=== PATIENT | female | born 1985 | race American Indian/Alaskan Native ===

== ENCOUNTER 2017-05-10 11:30 | Emergency (ER) | payer SELFPAY ==
[2017-05-10 11:44] VITALS: BP 127/87
[2017-05-10] MEDS ORDERED: PROVENTIL IH ONE (12:20)
[2017-05-10] MEDS ORDERED: DELTASONE PO ONE (12:20)
--- NOTE | 2017-05-10 12:21 | Emergency Department Report ---
Upper Respiratory HPI - HPI Chief Complaint: Upper Respiratory Infection Stated Complaint: COUGH/FEVER/WHEEZING Time Seen by Provider: 05/10/17 12:19 Duration: 3 Days URI Symptoms: Rhinorrhea: Yes, Sore Throat: Yes, Ear Pain: No, Cough: Yes, Shortness of Breath: Yes, Sick Contacts: Yes (child dx wtih bronchitis), Unable to Take Fluids: No, Urine Output Abnormal: No, Listless Behavior: No - Home Meds and Allergies Home Medications: Previous Rx's Medication Instructions Recorded Last Taken Type ALBUTEROL Inhaler [ProAir HFA 2 puff IH QID PRN #1 inhalation 05/10/17 Unknown Rx Inhaler] Azithromycin [Zithromax Z-MARLI] 250 mg PO DAILY #6 tablet 05/10/17 Unknown Rx Benzonatate [Tessalon Perles] 100 mg PO Q8HR PRN #30 capsule 05/10/17 Unknown Rx predniSONE [Deltasone] 40 mg PO QDAY #10 tablet 05/10/17 Unknown Rx Allergies/Adverse Reactions: Allergies Allergy/AdvReac Type Severity Reaction Status Date / Time No Known Allergies Allergy Unverified 05/10/17 11:39 ED Review of Systems ROS: Stated complaint: COUGH/FEVER/WHEEZING Other details as noted in HPI Constitutional: chills, fever Eyes: denies: eye pain, eye discharge, vision change ENT: denies: ear pain, throat pain Respiratory: cough, shortness of breath, wheezing Cardiovascular: denies: chest pain, palpitations Endocrine: no symptoms reported Gastrointestinal: denies: abdominal pain, nausea, diarrhea Genitourinary: denies: urgency, dysuria, discharge Musculoskeletal: denies: back pain, joint swelling, arthralgia Skin: denies: rash, lesions Neurological: denies: headache, weakness, paresthesias Psychiatric: denies: anxiety, depression Hematological/Lymphatic: denies: easy bleeding, easy bruising ED Past Medical Hx - Past Medical History Previous Medical History?: No - Surgical History Past Surgical History?: Yes Additional Surgical History: LEEP procedure - Social History Smoking Status: Current Every Day Smoker (15 pack yr smoker) Substance Use Type: None - Medications Home Medications: Home Medications Medication Instructions Recorded Confirmed Last Taken Type ALBUTEROL Inhaler [ProAir HFA 2 puff IH QID PRN #1 inhalation 05/10/17 Unknown Rx Inhaler] Azithromycin [Zithromax Z-MARLI] 250 mg PO DAILY #6 tablet 05/10/17 Unknown Rx Benzonatate [Tessalon Perles] 100 mg PO Q8HR PRN #30 capsule 05/10/17 Unknown Rx predniSONE [Deltasone] 40 mg PO QDAY #10 tablet 05/10/17 Unknown Rx ED Bronchiolitis Physical Exam - Exam General: Vital signs noted. No distress. Alert and acting appropriately. HEENT: Yes Pharyngeal Erythema, Yes Rhinorrhea (clear post nasal drip ), No Conjuctival Injection, No Dry Mucous Membranes Ear: Neither TM Bulge, Neither TM Erythema, Neither EAC Discharge Neck: No Adenopathy, No Rigidity Lungs: Yes Good Air Exchange, Yes Wheezes (bilat upper lobes ), Yes Cough (non productive ), No Clear Lung Sounds, No Stridor, No Nasal Flaring, No Retractions , No Use of Accessory Muscles Heart: Yes Regular, No Murmur Abdomen: Yes Peritoneal Signs, Yes Normal Bowel Sounds, No Tenderness Skin: No Rash, No Eczema Neurologic: Alert and oriented, no deficits. Musculoskeletal: Unremarkable. Treatments - Treaments Treatment: Improved Albuterol (albuterol neb x 1) ED Physical Exam - General Limitations: No Limitations General appearance: alert, in no apparent distress - Head Head exam: Present: atraumatic - Eye Eye exam: Present: normal appearance - ENT ENT exam: Present: mucous membranes moist, TM's normal bilaterally, normal external ear exam - Expanded ENT Exam Expanded Mouth exam: Present: normal external inspection, tongue normal. Absent: trismus , tongue elevation Throat exam: Positive: tonsillar erythema. Negative: tonsillomegaly, tonsillar exudate, R peritonsillar mass - Neck Neck exam: Present: normal inspection, full ROM. Absent: tenderness, lymphadenopathy, thyromegaly - Respiratory Respiratory exam: Present: wheezes. Absent: rales, rhonchi, stridor, chest wall tenderness, accessory muscle use, decreased breath sounds, prolonged expiratory - Cardiovascular Cardiovascular Exam: Present: regular rate, normal rhythm, normal heart sounds. Absent: systolic murmur, diastolic murmur, rubs, gallop - GI/Abdominal GI/Abdominal exam: Present: soft, normal bowel sounds - Rectal Rectal exam: Present: deferred - Extremities Exam Extremities exam: Present: normal inspection - Back Exam Back exam: Present: normal inspection - Neurological Exam Neurological exam: Present: alert, oriented X3 - Psychiatric Psychiatric exam: Present: normal affect, normal mood - Skin Skin exam: Present: warm, dry, intact, normal color. Absent: rash ED Course Vital Signs 05/10/17 11:39 Temperature 98.6 F Pulse Rate 73 Respiratory 18 Rate Blood Pressure 127/87 O2 Sat by Pulse 99 Oximetry - Reevaluation(s) Reevaluation #1: breathing improved, pt ambulatory from room to emergency department and returned O2 sat: 100 r/a, hr 87, wheezing resolved, d/c to self at this time. 05/10/17 13:05 ED Medical Decision Making - Medical Decision Making pt is a 89 y/o w/f 15 pack yr smoker on albuterol prn wheezing who presents for cough wheezing and congestion x 3 days , sick contact child with bronchitis pt endorse "this is usual onset for me, cough wheezing bronchitis" pt is currently out of albuterol inhaler exam at this time, pt appears with nad , ent : tms clear bilat no pain no erythema, nose: mild turbinater erythema clear post nasal drip, phayrnx: mild erythema no tonsilarmegally , no exudate no lesions no abscess uvula midline no stridor, lungs : bilat exp wheezes bilat upper lobes, pt is a/o x 3 ambulatory in ed department without increased sob, pt refuses cxr. Plan: neb tx , prednisone and tx for bronchitis , pt will follow up with primary care next week, advises to stop smoking, to home with zpack, albuterol inhaler, tessalon, prednisone pt verbalized agreement and understanding of discharge plan. Critical care attestation.: If time is entered above; I have spent that time in minutes in the direct care of this critically ill patient, excluding procedure time. ED Disposition Clinical Impression: Bronchitis Disposition: - TO HOME OR SELFCARE Is pt being admited?: No Does the pt Need Aspirin: No Condition: Good Instructions: Chronic Bronchitis (ED), Acute Bronchitis (ED) Prescriptions: ALBUTEROL Inhaler [ProAir HFA Inhaler] 2 puff IH QID PRN #1 inhalation PRN Reason: Shortness Of Breath Azithromycin [Zithromax Z-MARLI] 250 mg PO DAILY #6 tablet Benzonatate [Tessalon Perles] 100 mg PO Q8HR PRN #30 capsule PRN Reason: Cough predniSONE [Deltasone] 40 mg PO QDAY #10 tablet Referrals: PRIMARY CARE, [Primary Care Provider] - 3-5 Days Forms: Work/School Release Form(ED) Time of Disposition: 13:11
== END 2017-05-10 13:18 | disposition home or self-care (01) ==
LOC: ED 11:30
DX: J40 Bronchitis, not specified as acute or chronic (principal); F17.210 Nicotine dependence, cigarettes, uncomplicated
CPT/HCPCS: 99283; J7512